=== PATIENT | female | born 1995 | race African-American/Black ===

== ENCOUNTER 2023-11-23 22:00 | Emergency (ER) | payer MEDICAID ==
[~2023-11-23] VITALS: Ht 172.7 cm; Wt 87.8 kg
[~2023-11-23 22:00] MED LIST: IBUP-1174
[2023-11-24 01:24] VITALS: BP 102/64; PULSE 69; RESP 16; TEMP 98.3; O2SAT 99
[2023-11-24] MEDS ORDERED: DOXY100C4 PO (02:18)
== END 2023-11-24 02:28 | disposition home or self-care (01) ==
LOC: ER 22:00
DX: S70.362A Insect bite (nonvenomous), left thigh, initial encounter (principal); L08.89 Other specified local infections of the skin and subcutaneous tissue; Z79.899 Other long term (current) drug therapy; W57.XXXA Bitten or stung by nonvenomous insect and other nonvenomous arthropods, initial encounter; Y93.89 Activity, other specified; Y92.89 Other specified places as the place of occurrence of the external cause; Y99.8 Other external cause status